=== PATIENT | female | born 1970 | race Caucasian/White ===

== ENCOUNTER 2016-08-20 21:46 | Emergency (ER) | payer OTHER | END 2016-08-21 00:36 | disposition home or self-care (01) | LOC: FER 21:46 | DX: S93.401A Sprain of unspecified ligament of right ankle, initial encounter (principal); M06.9 Rheumatoid arthritis, unspecified; Z79.899 Other long term (current) drug therapy; F17.210 Nicotine dependence, cigarettes, uncomplicated; Z88.1 Allergy status to other antibiotic agents; W10.9XXA Fall (on) (from) unspecified stairs and steps, initial encounter; X50.1XXA Overexertion from prolonged static or awkward postures, initial encounter | CPT/HCPCS: 73610; 73630; 99283 ==